=== PATIENT | female | born 1955 | race Native Hawaiian/Other Pacific Islander ===

== ENCOUNTER 2017-09-17 10:41 | Outpatient (CLI) | payer BC | END 2017-09-17 19:35 | disposition home or self-care (01) | LOC: MAMMO 10:41 | DX: Z12.31 Encounter for screening mammogram for malignant neoplasm of breast (principal) ==

== ENCOUNTER 2023-06-16 14:12 | Outpatient (CLI) | payer OTHER, MEDICARE | END 2023-06-16 23:54 | disposition home or self-care (01) | LOC: RAD 14:12 | PROVIDERS: ATTEND Nurse Practitioner | DX: M79.671 Pain in right foot (principal) ==